=== PATIENT | male | born 1990 | race African-American/Black ===

== ENCOUNTER → 2018-03-19 16:19 | Emergency (ER) | payer SELFPAY | END | disposition home or self-care (01) | LOC: OHCORT 16:19 | DX: Z00.00 Encounter for general adult medical examination without abnormal findings (principal) ==

== ENCOUNTER → 2018-12-23 13:12 | Emergency (ER) | payer SELFPAY | END | disposition home or self-care (01) | LOC: OHCORT 13:12 | DX: Z02.9 Encounter for administrative examinations, unspecified (principal) ==